=== PATIENT | male | born 1980 | race Caucasian/White ===

== ENCOUNTER 2025-08-16 09:03 | Inpatient (IN) | payer OTHER ==
[~2025-08-16] VITALS: Ht 180.3 cm; Wt 100.2 kg
[~2025-08-16 09:03] MED LIST: CODBUTASA PO; HYDACE5 PO
[2025-08-16] MEDS ORDERED: NS 1,000 ML IV SCH (09:30)
[2025-08-16] MEDS ORDERED: Ketorolac Tromethamine 30mg Vial IV ONE (09:35)
[2025-08-16 09:46] LABS: BASOPHILS ABSOLUTE AUTO 0.07 K/mm3 (0.00-0.23); BASOPHILS PERCENT AUTO 0 % (0-2); EOSINOPHILS ABSOLUTE AUTO 0.05 K/mm3 (0.00-0.68); EOSINOPHILS PERCENT AUTO 0 % (0-6); Hematocrit 43.6 % (37.0-53.0); Hemoglobin 15.4 g/dL (13.5-17.5); IMMATURE GRAN ABSOLUTE AUTO 0.38 K/mm3 (0.00-0.10); IMMATURE GRAN PERCENT AUTO 2 % (0-1); LYMPHOCYTES ABSOLUTE AUTO 0.62 K/mm3 (0.84-5.20); LYMPHOCYTES PERCENT AUTO 3 % (21-46); MONOCYTES ABSOLUTE AUTO 1.30 K/mm3 (0.16-1.47); MONOCYTES PERCENT AUTO 6 % (4-13); Mean Corpuscular HGB Conc 35.3 g/dL (31.5-36.5); Mean Corpuscular Volume 83 fL (80-100); NEUTROPHILS ABSOLUTE AUTO 18.69 K/mm3 (1.96-9.15); NEUTROPHILS PERCENT AUTO 89 % (41-73); NRBC ABSOLUTE 0.00 K/mm3 (0.00-0.02); NRBC Auto 0.0 /100 WBC (0.0-0.2); Platelet Count 166 K/mm3 (150-400); RDW Coefficient Variation 13.3 % (11.7-14.2); RDW Standard Deviation 40.7 fL (35.1-46.3)
[2025-08-16 10:18] LABS: Alanine Aminotransfer (ALT/SGP 54.0 U/L (12-78); Albumin, Blood 4.0 g/dL (3.4-5.0); Albumin/Globulin Ratio 1.2 (0.8-1.8); Anion Gap 9.0 mmol/L (3-11); Aspartate Aminotrans (AST/SGOT 29.0 U/L (12-37); Bilirubin, Total 1.4 mg/dL (0.1-1.0); Blood Urea Nitrogen 11.0 mg/dL (8-24); CO2, Blood 26.0 mmol/L (21-32); Calcium, Blood 9.0 mg/dL (8.5-10.1); Chloride, Blood 101.0 mmol/L (98-108); Creatinine, Blood 1.0 mg/dL (0.60-1.20); Globulin, Blood 3.4 g/dL (2.2-4.0); Glucose, Blood 118.0 mg/dL (70-99); Potassium, Blood 3.9 mmol/L (3.5-5.5); Sodium, Blood 132.0 mmol/L (136-145); Total Protein, Blood 7.4 g/dL (6.4-8.2)
[2025-08-16] MEDS ORDERED: CefTRIAXone Sodium 1,000 MG in NS 100 ML IV ONE (10:40)
[2025-08-16 10:59] LABS: Influenza A, PCR NEGATIVE (NEGATIVE); Influenza B, PCR NEGATIVE (NEGATIVE); Resp Syncytial Virus, PCR NEGATIVE (NEGATIVE); SARS-Cov-2 (COVID-19) PCR, MMC NEGATIVE (NEGATIVE)
[2025-08-16 15:50] VITALS: BP 170/105
--- NOTE | 2025-08-16 16:26 | NUR ---
ADMIT PATIENT ADMITTED FROM ER AT APPROX. 1600. PATIENT SETTLED INTO ROOM. PATIENT ORIENTED TO ROOM AND CALL LIGHT. PATIENT IS A&OX4. PATIENT IS IND IN ROOM. PATIENT ON ROOM AIR. PATIENT DENIES PAIN, NAUSEA, AND SHORTNESS OF BREATH AT THIS TIME. SNACKS PROVIDED TO PATIENT PER HIS REQUEST. ADMISSION COMPLETED. 2 RN SKIN CHECK COMPETED WITH BEDSIDE RN. PICTURES TAKEN OF RIGHT LEG. RIGHT LEG MARKED. WARM BLANKET PROVIDED PER HIS REQUEST. PATIENT BP ELEVATED, MANUAL TAKEN 205/112. PATIENT REPORTS HEADACHE. DR. ESPANA NOTIFIED. STATED HE WILL ORDER MEDICATION. PATIENT IS PLEASANT AND COOPERATIVE WITH CARE.
[2025-08-16] MEDS ORDERED: HydrALAZINE HCl 20 MG / ML 1ML Vial IV PRN (16:40)
[2025-08-16 16:53] VITALS: BP 205/112
[2025-08-16 17:44] VITALS: BP 180/110
--- NOTE | 2025-08-16 17:59 | NUR ---
MANUAL BP OBTAINED 205/112 - AMLODIPINE 5 MG ADMINISTERED PER PROVIDER ORDER. PRN HYDRALAZINE FOR SBP GREATER THAN 180 ALSO ORDERED. AFTER ADMINISTRATION OF AMLODIPINE PT BP RECHECKED APPROX 45 MINUTES LATER AND READING 180/110. 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 PT DOES REPORT A HEADACHE - TYLENOL GIVEN AND PT REQUESTING TO TAKE A HOT SHOWER THIS HELPS HIS MIGRAINES AT HOME. PT CURRENTLY IN SHOWER - FI[place] IN BATHROOM WITH PT FOR OBSERVATION. EDUCATED ON PULL CORD SYSTEM.
[2025-08-16 19:48] VITALS: BP 152/90
[2025-08-16] MEDS ORDERED: Lactobacil 2-S.Thermo-Bifido 1 1 Cap PO SCH (21:00)
--- NOTE | 2025-08-17 05:16 | NUR ---
NO ACUTE CHANGES DURING SHIFT. PATIENT ALERT AND ORIENTED X4, ABLE TO MAKE NEEDS KNOWN. PATIENT IS ON ROOM AIR AND INDEPENDENT IN ROOM. TYLENOL GIVEN FOR HEADACHE. CELLULITIS TO THE RLE. BED IS IN LOW POSITION WITH WHEELS LOCKED. CALL LIGHT WITHIN REACH.
[2025-08-17 05:38] VITALS: BP 165/102
[2025-08-17 05:40] LABS: BASOPHILS ABSOLUTE AUTO 0.04 K/mm3 (0.00-0.23); BASOPHILS PERCENT AUTO 0 % (0-2); EOSINOPHILS ABSOLUTE AUTO 0.03 K/mm3 (0.00-0.68); EOSINOPHILS PERCENT AUTO 0 % (0-6); Hematocrit 44.4 % (37.0-53.0); Hemoglobin 15.7 g/dL (13.5-17.5); IMMATURE GRAN ABSOLUTE AUTO 0.03 K/mm3 (0.00-0.10); IMMATURE GRAN PERCENT AUTO 0 % (0-1); LYMPHOCYTES ABSOLUTE AUTO 1.24 K/mm3 (0.84-5.20); LYMPHOCYTES PERCENT AUTO 12 % (21-46); MONOCYTES ABSOLUTE AUTO 0.86 K/mm3 (0.16-1.47); MONOCYTES PERCENT AUTO 8 % (4-13); Mean Corpuscular HGB Conc 35.4 g/dL (31.5-36.5); Mean Corpuscular Volume 84 fL (80-100); NEUTROPHILS ABSOLUTE AUTO 8.46 K/mm3 (1.96-9.15); NEUTROPHILS PERCENT AUTO 79 % (41-73); NRBC ABSOLUTE 0.00 K/mm3 (0.00-0.02); NRBC Auto 0.0 /100 WBC (0.0-0.2); Platelet Count 145 K/mm3 (150-400); RDW Coefficient Variation 13.4 % (11.7-14.2); RDW Standard Deviation 41.1 fL (35.1-46.3)
[2025-08-17 06:43] LABS: Anion Gap 10.0 mmol/L (3-11); Blood Urea Nitrogen 11.0 mg/dL (8-24); CO2, Blood 23.0 mmol/L (21-32); Calcium, Blood 9.0 mg/dL (8.5-10.1); Chloride, Blood 106.0 mmol/L (98-108); Creatinine, Blood 1.03 mg/dL (0.60-1.20); Glucose, Blood 94.0 mg/dL (70-99); Magnesium, Blood 2.2 mg/dL (1.6-2.4); Potassium, Blood 3.5 mmol/L (3.5-5.5); Sodium, Blood 135.0 mmol/L (136-145)
[2025-08-17 07:24] VITALS: BP 148/104
[2025-08-17] MEDS ORDERED: NS 250 ML IV PRN (07:55)
[2025-08-17] MEDS ORDERED: CeFAZolin Sodium 1,000 MG in NS 50 ML IV SCH (08:00)
[2025-08-17] MEDS ORDERED: Enoxaparin 40 MG/0.4 ML SYR SC SCH (09:00)
[2025-08-17 09:32] VITALS: BP 156/102
[2025-08-17 16:31] VITALS: BP 163/100
--- NOTE | 2025-08-17 18:33 | NUR ---
SHIFT SUMMARY: PATIENT CELULITIS TO R LEG HAS IMPROVED BASED ON OUTLINE MARKING. PATIENT DENIES PAIN TO AFFECTED SITE. PATIENT STILL HYPERTENSIVE, RECEIVED SCHEDULED BP/ABX MEDS PER EMAR. PATIENT INDEPENDENT IN ROOM AND TOOK FOR A WALK THIS AFTERNOON AROUND THE UNIT. PATIENT HAS HAD GREAT APPETITE, CONTINENT OF BAB. PATIENT SPOUSE AT BEDSIDE AND PLAN TO STAYED OVERNIGHT. CALL LIGHT IN REACH.
[2025-08-17 19:51] VITALS: BP 179/116
[2025-08-18 02:47] VITALS: BP 153/116
[2025-08-18 04:31] VITALS: BP 148/95
--- NOTE | 2025-08-18 05:18 | NUR ---
NO ACUTE CHANGES DURING SHIFT. PATIENT ALERT AND ORIENTED X4, ABLE TO MAKE NEEDS KNOWN. PAIENT ABLE TO TURN SELF IN BED. PATIENT WALKEDA ROUND THE RODRIGUEZ WITH WHO IS AT BEDSIDE T/0 THE NIGHT. PATIENT WAS GIVEN TYLENOL FOR HEADACHE. RLE CELLULITIS STEPHANIE. PATIENT BP IS A BIT HYPERTENSIVE BUT NO PRN MEDS WERE NEEDED. PATIENT ON ROOM AIR. BED IN LOW POSITION WITH WHEELS LOCKED. CALL LIGHT WITHIN REACH
[2025-08-18 08:17] VITALS: BP 164/106
[2025-08-18 09:50] VITALS: BP 154/92
[2025-08-18] MEDS ORDERED: LISI10 PO (10:42)
[2025-08-18] MEDS ORDERED: AMLO5 PO (10:42)
[2025-08-18] MEDS ORDERED: CEPH500 PO (10:42)
--- NOTE | 2025-08-18 11:36 | NUR ---
SHIFT/DISCHARGE SUMMARY: PATIENT R LEG CELLULITIS SHOWS IMPROVEMENT BASED ON OUTLINE MARKING. PATIENT DENIED PAIN TO SITE, CP/PRESSURE, SOB, N/V AND DIZZINESS. PATIENT CONTINUES TO BE HYPERTENSIVE. PATIENT RECEIVED SCHEDULED BP MEDS AND ABX PER EMAR. PATIENT BP HAS IMPROVED AN HOUR LATER AFTER RECEIVING HIS BP MEDS. PATIENT HAS GREAT APPETITE, CONTINENT OF BAB. INDEPENDENT IN ROOM. PIV DC'D. PATIENT DISCHARGE HOME. DISCHARGE INSTRUCTIONS PACKET GIVEN TO PATIENT. PATIENT EDUCATED ON ADMITTING DX'S OF CELLULITIS, S/S, TX, NEW RX, CHECK BLOOD PRESSURE AT HOME AND F/U c PCP. PATIENT AND SPOUSE VERBALIZED UNDERSTANDING AND NO FURTHER QUESTIONS. RX WAS FAXED TO [facility] IN [place]. ALL PERSONAL BELONGINGS WERE SENT HOME c PATIENT. PATIENT LEFT THE ROOM AT 1135, DECLINE WC TRANSPORT.
== END 2025-08-18 11:28 | disposition home or self-care (01) | DRG 872 ==
LOC: ER 09:03 → ERHOLD 13:15 → MEDS 15:40
PROVIDERS: Student in an Organized Health Care Education/Training Program; ADMIT Internal Medicine
DX: A41.9 Sepsis, unspecified organism (principal); L03.116 Cellulitis of left lower limb; I10 Essential (primary) hypertension; G43.909 Migraine, unspecified, not intractable, without status migrainosus; R00.0 Tachycardia, unspecified; Z79.891 Long term (current) use of opiate analgesic; Z87.891 Personal history of nicotine dependence
CPT/HCPCS: 36415; 71046; 80048; 80053; 83605; 83735; 83880; 84484; 85025; 85379; 87637; 93005; 93010; 93971; 96361; 96365; 96375; 99285-25; A9270; J0690; J0696; J1650; J1885; J7030; J7050